=== PATIENT | female | born 1965 | race African-American/Black ===

== ENCOUNTER 2016-06-23 13:32 | Emergency (ER) | payer OTHER ==
[~2016-06-23] VITALS: Ht 170.2 cm; Wt 98.6 kg
[~2016-06-23 13:32] MED LIST: AMLODIPINE BESY10 MG PO; CLONIDINE HCL0.1 MG PO; DITROPAN XL10 MG PO; LISINOPRIL; LOPRESSOR100 M1 PO; LYRICA150 MG PO; METOPROLOL PO; MOBIC15 MG PO; PERCOCET 5/31 TABLET PO; TOPROL XL100 MG PO; VALIUM5 MG PO; VALSARTAN160 MG PO; VICODIN ES 7.51 EAC1 PO; WELLBUTRIN SR100 MG PO
[2016-06-23] MEDS ORDERED: ABILIFY10 MG PO (13:59)
[2016-06-23] MEDS ORDERED: AMBIEN10 MG PO (13:59)
[2016-06-23] MEDS ORDERED: CLONIDINE HCL0.1 MG PO (14:01)
[2016-06-23] MEDS ORDERED: DELTASONE20 M1 PO (16:11)
[2016-06-23 16:39] VITALS: BP 138/92
== END 2016-06-23 16:42 | disposition home or self-care (01) ==
LOC: EME 13:32
DX: M54.16 Radiculopathy, lumbar region (principal); J81.1 Chronic pulmonary edema; R19.7 Diarrhea, unspecified; I10 Essential (primary) hypertension; F17.200 Nicotine dependence, unspecified, uncomplicated
CPT/HCPCS: 71020; 94640; 99281; 99284; J1885